=== PATIENT | female | born 1980 | race Caucasian/White ===

== ENCOUNTER 2016-11-20 06:34 | Inpatient (IN) | payer BC ==
[2016-11-20] VITALS (51 sets, daily range): BP systolic 108–146; BP diastolic 56–87; PULSE 65–113; TEMP 98–98.3
[~2016-11-20] VITALS: Ht 177.8 cm; Wt 98.5 kg
[2016-11-20] MEDS ORDERED: TYLENOL 500MG500 MG PO (08:25)
[2016-11-20] MEDS ORDERED: TUMS500 MG (08:25)
[2016-11-20] MEDS ORDERED: PRENATAL (08:26)
[2016-11-20 08:27] LABS: HEMATOCRIT 39.5 % (37.0-47.0); HEMOGLOBIN 13.7 g/dl (12.5-16.0); MEAN CELL VOLUME 90 fl (80.0-100.0); MEAN CORPUSCULAR HEMOGLOBIN 31 pg (27.0-31.0); MEAN CORPUSCULAR HGB CONC 35 g/dl (33.0-37.0); MEAN PLATELET VOLUME 10.5 fl (7.4-10.4); PLATELET COUNT 174 K/mm3 (130-400); RED BLOOD COUNT 4.37 M/mm3 (4.10-5.30); REDCELL DISTRIBUTION WIDTH-CV 13.9 % (11.5-14.5)
[2016-11-20 08:36] LABS: ADD PATHOLOGY DIFF REVIEW NO
[2016-11-20 09:13] LABS: BAND 2 % (0-10); EOSINOPHIL 1 % (0-4); NEUTROPHILS 53 % (42.0-75.2); PLATELET ESTIMATE NORMAL (NORMAL); TOTAL CELLS COUNTED 100
[2016-11-21 05:00] VITALS: BP 132/73; PULSE 92; TEMP 98.2
[2016-11-21 08:06] VITALS: BP 116/70; PULSE 79; TEMP 97.5
[2016-11-21] MEDS ORDERED: IBU800 M1 PO (08:32)
[2016-11-21] MEDS ORDERED: PERCOCET 325 MG1 TA2 PO (08:33)
[2016-11-21 15:35] VITALS: BP 114/70; PULSE 84; TEMP 97.8
[2016-11-21 19:50] VITALS: BP 119/70; PULSE 86; TEMP 98.1
[2016-11-22 08:58] VITALS: BP 113/64; PULSE 85; TEMP 97.5
== END 2016-11-22 11:00 | disposition home or self-care (01) | DRG 775 ==
LOC: LDR 06:34 → OB 21:15
PROVIDERS: Obstetrics & Gynecology
PROC: 10E0XZZ Delivery of Products of Conception, External Approach (ICD-10-PCS; principal; 2016-11-20)
PROC: 0HQ9XZZ Repair Perineum Skin, External Approach (ICD-10-PCS; 2016-11-20)
DX: O70.0 First degree perineal laceration during delivery (principal); Z3A.39 39 weeks gestation of pregnancy; Z37.0 Single live birth
CPT/HCPCS: J2590; J7120